=== PATIENT | female | born 2000 | race Caucasian/White ===

== ENCOUNTER 2024-06-11 15:42 | Outpatient (CLI) | payer BC, SELFPAY ==
--- NOTE | 2024-06-11 16:00 | CRLHL7_ITS ---
For Patients: As a result of the Century Cures Act, medical imaging exams and procedure reports are released immediately into your electronic medical record. You may view this report before your referring provider. If you have questions, please contact your health care provider. HISTORY: Dating and viability COMPARISON: None available of this gestation. TECHNIQUE: Transvaginal ultrasound examination of the early was performed. FINDINGS: A single intrauterine gestational sac is seen with a pole. The crown-rump length measurement of 3.2 cm gives an estimated gestational age of 10 weeks 1 day with an estimated date of delivery of 01/06/2025. This correlates well with the LMP of 04/05/2020 for which gives a clinical age of 9 weeks 4 days. Regular cardiac activity is seen at 176 BPM. There is no sign of free fluid in the pelvis. The right ovary is normal in appearance. The left ovary can not be identified. IMPRESSION: Single intrauterine gestation with estimated age of 10 weeks 1 day. Regular cardiac activity is seen. Dictated by Antonio Mckeon MD @ 06/11/2024 11:09:10 PM (Electronically Signed)
== END 2024-06-11 15:43 | disposition home or self-care (01) ==
LOC: US 15:42
PROVIDERS: Visit Provider Registered Nurse
DX: Z34.91 Encounter for supervision of normal pregnancy, unspecified, first trimester (principal); Z3A.10 10 weeks gestation of pregnancy
CPT/HCPCS: 76817; 86703; 86706; 86803; 86850; 86900; 86901; 87086; 87340; 87491; 87591

== ENCOUNTER 2024-06-11 17:10 | Outpatient (CLI) | payer BC, SELFPAY ==
[2024-06-11 19:53] LABS: Chlamydia DNA Amplified* NOT DETECTED (No Detected); GC DNA Amplified* NOT DETECTED (No Detected)
== END 2024-06-11 17:11 | disposition home or self-care (01) ==
PROVIDERS: Visit Provider Registered Nurse
DX: Z34.91 Encounter for supervision of normal pregnancy, unspecified, first trimester (principal); Z3A.09 9 weeks gestation of pregnancy
CPT/HCPCS: 86592; 86703; 86704; 86706; 86762; 86787; 86803; 86850; 86900; 86901; 87086; 87340; 87491; 87591

== ENCOUNTER 2024-08-13 08:09 | Outpatient (CLI) | payer BC, SELFPAY ==
--- NOTE | 2024-08-13 08:15 | CRLHL7_ITS ---
For Patients: As a result of the Century Cures Act, medical imaging exams and procedure reports are released immediately into your electronic medical record. You may view this report before your referring provider. If you have questions, please contact your health care provider. INDICATION: Evaluate anatomy. COMPARISON: 06/11/2024 TECHNIQUE: Real time denise scale imaging of the fetus was performed as well as color Doppler analysis of the umbilical vessels. FINDINGS: Sonographic imaging demonstrates a single living intrauterine gestation. Fetus demonstrates a regular cardiac rate of 150 beats per minute. Fetus has a breech position. The placenta lies fundal without evidence of placenta previa. Edge of the placenta located 9.7 cm from the internal cervical os. Amniotic fluid volume appears normal. Single deepest vertical pocket: 4.4 cm. The cervix is closed and measures 4.2 cm in length. The composite ultrasound gestational age is calculated at 19 weeks 2 days with an estimated sonographic due date of 01/05/2025. The estimated weight is 273 grams which lies at the 76th %. The following biometric measurements were obtained: Biparietal diameter: 4.3 cm/19 weeks 1 day 73rd% Head circumference: 16.3 cm/19 weeks 1 day 68th% Abdominal circumference: 14.3 cm/19 weeks 5 days 81st% Femur length: 2.8 cm/18 weeks 3 days 37th% The HC/AC ratio measures: 1.14 range (1.09-1.26) On anatomic survey, there is a normal appearance of the cerebral ventricles, cavum septi pellucidi, cisterna magna and cerebellum. The nose and lips appear normal. Incomplete visualization of the profile due to position. The cervical, thoracic and lumbar spine are well visualized and appear normal. Cardiac structures are difficult to evaluate due to position. The diaphragm and stomach appear normal. The kidneys and bladder also appear normal. There is a normal three-vessel cord and there is a marginal cord insertion site located 4 millimeters from the placental edge. The four extremities appear normal. IMPRESSION: Concordance of clinical and sonographic dating. Incomplete visualization of the profile, LVOT, RVOT, three-vessel view and three-vessel trachea view. Remainder of the anatomic survey normal. Short-term follow-up recommended. Marginal cord insertion located 4 millimeters from the placental edge. Dictated by Shane Naranjo MD @ 08/13/2024 1:00:00 PM (Electronically Signed)
== END 2024-08-13 08:10 | disposition home or self-care (01) ==
LOC: US 08:10
PROVIDERS: Visit Provider Midwife
DX: Z34.92 Encounter for supervision of normal pregnancy, unspecified, second trimester (principal); Z3A.19 19 weeks gestation of pregnancy
CPT/HCPCS: 76805

== ENCOUNTER 2024-08-26 10:07 | Outpatient (CLI) | payer BC, SELFPAY ==
--- NOTE | 2024-08-26 10:15 | CRLHL7_ITS ---
For Patients: As a result of the Century Cures Act, medical imaging exams and procedure reports are released immediately into your electronic medical record. You may view this report before your referring provider. If you have questions, please contact your health care provider. OBSTETRICAL ULTRASOUND FOLLOW-UP INDICATION: Follow-up anatomy. 20, para 3. LMP: 04/05/2024 VIRGILIO by LMP: 01/10/2025 Gestational age: 20 weeks 3 days Gestation: Single COMPARISON: 08/13/2024, 06/11/2024. TECHNIQUE: Realtime denise-scale imaging of the fetus was performed transabdominal. FINDINGS: Cervix: Visualized, 3.1 cm positioning: Breech Amniotic fluid: 5.5 cm SDP Placenta technique: Transabdominal Placenta position: Anterior heart rate: 142 bpm BIOMETRY: BPD: 5.1 cm, 21 weeks 4 days, 87.4% HC: 18.9 cm, 21 weeks 2 days, 77.4% AC: 16.6 cm, 21 weeks 5 days, 81.8% FL: 3.3 cm, 20 weeks 2 days, 39.0% FL/AC Ratio: 19.9% HC/AC ratio: 1.1 EFW: 399.8 grams; 0 lbs. 14 oz. age by this ultrasound: 21 weeks 2 days VIRGILIO by this US: 01/04/2025 Percentile by VIRGILIO: 81.5% IMPRESSION: Facial profile, cardiac outflow tracts, three-vessel view and three-vessel trachea view were seen and appear normal. WIL VO M.D. Body/Diagnostic Radiologist [email or web address] Transcribed: 10:[address]/Dictated by: Wil Vo MD @ 08/27/2024 8:52:00 AM (Electronically Signed)
== END 2024-08-26 10:08 | disposition home or self-care (01) ==
LOC: US 10:08
PROVIDERS: Visit Provider Midwife
DX: Z34.92 Encounter for supervision of normal pregnancy, unspecified, second trimester (principal); Z3A.20 20 weeks gestation of pregnancy
CPT/HCPCS: 76816

== ENCOUNTER 2024-10-15 10:49 | Outpatient (CLI) | payer BC, SELFPAY | END 2024-10-15 10:50 | disposition home or self-care (01) | LOC: NFLDREF 10-18 02:29 | PROVIDERS: Visit Provider Midwife | DX: Z34.92 Encounter for supervision of normal pregnancy, unspecified, second trimester (principal); Z3A.27 27 weeks gestation of pregnancy | CPT/HCPCS: 86592 ==

== ENCOUNTER 2024-10-15 10:50 | Outpatient (CLI) | payer BC, SELFPAY | END 2024-10-15 10:51 | disposition home or self-care (01) | LOC: US 10:51 | PROVIDERS: Visit Provider Midwife | DX: O43.193 Other malformation of placenta, third trimester (principal); O36.63X0 Maternal care for excessive fetal growth, third trimester, not applicable or unspecified; Z3A.29 29 weeks gestation of pregnancy | CPT/HCPCS: 76816 ==

== ENCOUNTER 2024-11-27 11:58 | Outpatient (CLI) | payer BC, SELFPAY ==
--- NOTE | 2024-11-27 12:15 | CRLHL7_ITS ---
For Patients: As a result of the Century Cures Act, medical imaging exams and procedure reports are released immediately into your electronic medical record. You may view this report before your referring provider. If you have questions, please contact your health care provider. OBSTETRICAL ULTRASOUND ??? ANATOMY SURVEY, INDICATION: Marginal cord insertion. Follow-up growth. anatomy survey. CLINICAL HISTORY: LMP: 04/05/2024 VIRGILIO by LMP: 01/10/2025 Gestational age: 18 weeks 4 days TECHNIQUE: Real-time denise-scale imaging of the fetus was performed transabdominal. PREVIOUS ULTRASOUND: 06/11/2024 FINDINGS: position: Breech/billy breech Cervix: Visualized Technique: Transabdominal Length of closed cervix: 4.2 cm Placenta position: Fundal Technique: Transabdominal Placenta tip to internal os: 9.7 cm Umbilical cord: 3-vessel cord Placental insertion: Marginal (within 2 cm of placenta edge); 0.4 cm Amniotic fluid: 4.4 cm SDP (greater than/equal to 2 to less than 8 cm) ANATOMY SURVEY: Observed Structures Cerebellum: Yes; 1.9 cm, 19 weeks 5 days Cisterna magna: Yes; 4.7 mm Nuchal fold: Yes; 4.2 mm Lateral ventricle: Yes; 6.7 mm CSP: Yes Midline falx: Yes Choroid plexus: Yes Spine: Yes Stomach: Yes Abdominal cord insert: Yes Urinary bladder: Yes Kidneys: Yes Diaphragm: Yes Nose/lips: Yes Orbital view: Yes Profile: Suboptimal view due to position Upper extremities: Yes Lower extremities: Yes Hands: Yes Feet: Yes 4-chamber heart: Yes LVOT: Missing view due to position RVOT: Missing view due to position 3VV: Missing view due to position 3VTV: Missing view due to position BIOMETRY BPD: 4.3 cm, 19 weeks 1 day, 73.3% HC: 16.3 cm, 19 weeks 1 day, 67.8% AC: 14.3 cm, 19 weeks 5 days, 81.1% FL: 2.8 cm, 18 weeks 3 days, 37.3% FL/AC: 19.18% HC/AC ratio: 1.14 heart rate: 150 bpm age by this ultrasound: 19 weeks 2 days VIRGILIO by this ultrasound: 01/05/2025 Estimated weight: 273 grams (0 pounds 10 ounces) Percentile by VIRGILIO: 76.3% IMPRESSION: 1) Sonographic gestational age is 34 weeks 1 day and sonographic due date is 01/07/2025. Good correlation with dates. Normal interval growth. 2) Estimated weight is 46th percentile. Abdominal circumference is 47th percentile. SHANE BRITTON M.D. Diagnostic Radiologist [employer] [email or web address] Transcribed: 1:[address]/Dictated by: Shane Britton MD @ 11/27/2024 1:06:[address]/Dictated by: Shane Britton MD @ 11/27/2024 1:06:00 PM (Electronically Signed)
== END 2024-11-27 11:59 | disposition home or self-care (01) ==
LOC: US 11:58
PROVIDERS: Visit Provider Midwife
DX: O43.192 Other malformation of placenta, second trimester (principal); Z3A.18 18 weeks gestation of pregnancy
CPT/HCPCS: 76816

== ENCOUNTER 2024-12-16 14:20 | Outpatient (CLI) | payer OTHER, SELFPAY ==
[2024-12-17 14:54] LABS: Strep B DNA Probe Negative (Negative)
[2024-12-17 15:25] LABS: Strep B Susceptibility Needed? No
== END 2024-12-16 14:21 | disposition home or self-care (01) ==
LOC: NFLDREF 14:20
PROVIDERS: Visit Provider Midwife
DX: Z34.93 Encounter for supervision of normal pregnancy, unspecified, third trimester (principal); Z3A.36 36 weeks gestation of pregnancy
CPT/HCPCS: 87081; 87653

== ENCOUNTER 2024-12-29 00:32 | Inpatient (IN) | payer OTHER, SELFPAY ==
[2024-12-29] VITALS (13 sets, daily range): BP systolic 109–138; BP diastolic 54–76; PULSE 67–90; RESP 14–16; TEMP 36.5–36.7; O2SAT 96–98; BMI 39.4
[2024-12-29] MEDS: OXYTOCIN 10 UNIT/ML INJ IM (00:58)
--- NOTE | 2024-12-29 01:19 | W.PM.VAGDE_ITS ---
OB Procedure Vag Delivery Mother Details Mother Details: The patient is a 24 year-old, 2, Para 1, admitted on 12/29/24 at 38 2/7 Days gestation. Admission Date: 12/29/24 Additional Details Amniotic Membrane Status: SROM Amniotic Membrane Rupture Date: 12/29/24 Amniotic Membrane Rupture Time: 00:51 Amniotic Membrane Fluid Description: Clear Analgesia/Anesthesia Type: None Waterbirth: No Pitcoin: Yes Intrapartal Events: Precipitous Labor <3 Hrs Labor Onset: 22:00 Complete: 00:47 Pushin:47 Heart: heart tones during second stage were cat 2. Normal baseline of 135, no accels, variables and early decels. Precip Delivery Details Delivery Date: 12/29/24 Delivery Time: 00:51 Route of delivery: Infant Gender: Male Infant Viability: Alive; Heart Rate Present Position at Delivery: OA Delivery Details: Per nursing: Patient was admitted for active labor and progressed precipitously. ER doc was called to floor with complaints of increasing pressure. SROM noted at 0051 with clear fluid. Patient was complete at 0047 and pushing at 0047. of a viable male at 0109 in semifowlers. Vertex delivered OA. No nuchal cord or shoulder dystocia. Body delivered easily and without incident. passed to mothers abdomen with a vigorous cry. Cord was clamped and cut at > 5 minutes. APGARS were 8 at one minute and 9 at five minutes respectively. I arrived at 0105. ER MD was at bedside. I took over care. Intact placenta with a 3 vessel cord delivered spontaneously at 0109 with maternal push ing efforts. Fundus firm. 1st degree perineal and periurethral (from clitoris to urethra) identified, hemostatic and not repaired with verbal consent of Ila. EBL 200 cc. Mother and baby stable; mother plans to breastfeed. Infant weight pending.? 1 Minute Interval Total Score: 8 5 Minute Interval Total Score: 9 Additional Details Shoulder Dystocia: No Placenta Delivery Time: 01:09 Placental Delivery Description: Spontaneous Procedure Done: Global Blood Loss: 200 Laceration: Perineal - 1st Degree (and Vulvar laceration from urethra to clitoris, hemostatic and not repaired) Episiotomy Description: None Blood Loss Measurement Type: EBL Bakri Used: No Sponge/Need Count Correct: Yes Cord Vessel Description: 3 Vessels and True Knot Event Summary Status: Mother and infant were stable after delivery. Disposition: floor
--- NOTE | 2024-12-29 01:21 | W.PM.LDBA ---
Subjective History of Present Illness Date Seen: 12/29/24 Narrative: Patient is being admitted to Labor and Delivery for active labor. She is a 24 year old at 38 2/7 weeks gestation. Her full history and physical was dictated by Edda JESSICA 12/24/24. Please see this for details. She arrived and birthed prior to my arrival. This note is being written post . RN attended of baby. Please see delivery note Specific Issues/Plans G 2 P 1001 : Miguel. It is a boy! Daughter: Stephen H&P: completed 12/24/2024 by Edda JESSICA # History of precipitous . # Varicella nonimmune. Recommended vaccination. # Hep B [id number] vaccine series. # Marginal cord insertion-Marginal cord insertion (<1 cm from placental edge) ? Growth US at 28 (completed) -95% growth found and 34 weeks: 46%ile ? Delivery recommended: Early term delivery not indicated? Imaginst trimester: 06/11/2024- Single intrauterine gestation with estimated age of 10 weeks 1 day. Regular cardiac activity is seen. Anatomy US: 08/13/2024--normal but missing views and marginal cord insertion noted, follow up in 2-3w scheduled. Other: 08/26/24-Follow up normal findings with EFW 81% 10/24/2024-EFW 95% 11/27/2024 IMPRESSION: 1)Sonographic gestational age is 34 weeks 1 day and sonographic due date is 01/07/2025. Good correlation with dates. Normal interval growth. 2)Estimated weight is 46th percentile. Abdominal circumference is 47th percentile. Hepatitis B: 08/13/24 Flu: Completed Covid: 06/11/2024 Tdap: 10/30/24 RSV: N/A 32 week mental health: [] Last pap: NIL OB - Problem Based A/P Additional Plan (1) Supervision of normal : Status: Acute (2) Pain during labor: Status: Acute Plan ASSESSMENT:?? 24 at 38w2d weeks gestation?? complicated by:??marginal cord insertion Labor type: Spontaneous, Active labor?? Category 2 FHR pattern.??? Labor complicated by: precipitous?? GBS negative? PLAN:?? 1. Routine intrapartum cares as ordered. Continue with expectant management?? 2. Monitoring per policy, intermittent?? 3. Planning unmedicated . Candidate for analgesia of choice.??? 4. Patient encouraged to reposition and ambulate to promote physiologic labor and .?? 5. Anticipate ? OB Exam Physical Exam Vital signs: Pulse BP 81 138/73 12/29/24 01:02 12/29/24 01:02 Narrative: Vitals Reviewed Constitutional:? Alert and oriented x3 HEENT:? Normocephalic, atraumatic Abdomen:? Soft, nontender, and gravid. Vertex by Arthur's, confirmed with cervical exam. Cervix: 6 cm/90%/0 station/vertex per nursing NST: 135 bpm/moderate variability/accelerations/[]decelerations/[]contractions
[2024-12-29] MEDS: IBUPROFEN 600 MG TABLET PO ×3 (01:22→20:00)
[2024-12-29] MEDS: DOCUSATE SODIUM 100 MG CAPSULE PO (09:31)
[2024-12-30 04:58] VITALS: BP 116/76; PULSE 80; RESP 16; TEMP 36.6; O2SAT 97
[2024-12-30 06:43] LABS: Hemoglobin* 13.4 gm/dL (12.0-16.0)
--- NOTE | 2024-12-30 07:36 | PM.OBPNVD1 ---
OB - PN:Subj Subjective Date Seen: 12/30/24 Narrative: Ila is a 24 y.o. who was admitted to L & D for labor.? She had an uncomplicated NVD.? ?? The patient feels well.? The pain is well controlled with current medications.? She has no new complaints.? She is breast feeding and reports things were going well, overnight her baby has had some respiratory distress and was started on IV antibiotics.?She is concerned about her baby who was just brought back to the room with her at the end of my visit. the patient has done well.? Vitals have been stable.? She has remained afebrile.? Has a good appetite, is tolerating a general diet.? She is voiding without difficulty.? She is passing gas and has not had a bowel movement.? She is ambulating and denies any dizziness.? Has Small amount of rubra lochia.? OB - PN: Obj Exam Physical Exam: Vital signs: Temp Pulse Resp BP Pulse Ox O2 Del Method 98 F 80 16 116/76 97 Room Air 12/30/24 04:58 12/30/24 04:58 12/30/24 04:58 12/30/24 04:58 12/30/24 04:58 12/30/24 04:58 Narrative: GENERAL APPEARANCE:? normal affect, alert, no distress? MOOD:? appropriate? HEENT: normocephalic, neck supple, full ROM? CHEST:? Symmetrical chest wall movement.? Normal respiratory effort.? Clear to auscultation ? HEART:? regular rate and rhythm? ABDOMEN:? soft, non-tender. Uterine fundus is firm, at Umbilicus, Midline and is appropriate for the stage of recovery.? Bowel sounds present.? PERINEUM:? mild edema of the perineum, there is a 1st degree laceration that is healing well.? EXTREMITIES:? normal and trace edema? OB - PN: Obj Data Labs Labs: Laboratory Results - last 24 hr 12/30/24 06:25 Hgb 13.4 OB - PN: A/P Delivery Assessment and Plan (1) care and examination immediately after delivery: Status: Acute (2) Lactating mother: Status: Acute Plan day: 1 Plan: routine care Comments: G 2 P 2 status post uncomplicated NVD??? 1.? Continue route PP cares? 2.? .? May see if desired? 3.? Anticipate discharge home tomorrow?
[2024-12-30] MEDS: ACETAMINOPHEN 500 MG TABLET 1000 MG PO (07:53)
[2024-12-30] MEDS: DOCUSATE SODIUM 100 MG CAPSULE PO (07:54)
[2024-12-30 07:55] VITALS: BP 106/70; PULSE 94; RESP 16; TEMP 36.4; O2SAT 98
[2024-12-30] MEDS: IBUPROFEN 600 MG TABLET PO ×2 (12:34→21:07)
[2024-12-30 17:16] VITALS: BP 119/70; PULSE 77; RESP 16; TEMP 36.7; O2SAT 99
[2024-12-30 21:02] VITALS: BP 139/82; PULSE 94; RESP 22; O2SAT 96
[2024-12-31 03:29] VITALS: BP 114/73; PULSE 84; RESP 22; O2SAT 98
--- NOTE | 2024-12-31 07:14 | P.DS_ITS ---
DS: Providers Provider Date Seen: 12/31/24 Date of admission: 12/29/24 00:32 Primary care physician: Not a Local Provider Admitting Clinician: Tonja Rollins CNM Attending Physician on discharge: Tonja Rollins CNM Date of Discharge: 12/31/24 DS: Diagnosis Discharge Diagnosis (1) care and examination immediately after delivery: Status: Acute (2) Lactating mother: Status: Acute Exam Narrative: Exam Narrative: GENERAL APPEARANCE:? normal affect, alert, no distress MOOD:? appropriate CHEST:? clear to auscultation HEART:? regular rate and rhythm ABDOMEN:? soft, non-tender the uterine fundus is 1 FB below Umbilicus, Midline and is appropriate for the stage of recovery. PERINEUM:? RN to check perineum when able due to baby needs EXTREMITIES:? normal and minimal edema Const: Vital Signs, click to edit/add: Vital Signs - 24 hr 12/30/24 07:55 12/30/24 17:16 12/30/24 21:02 Temperature 97.5 F L 98.1 F Pulse Rate [Pulse Oximeter] 94 77 94 Respiratory Rate 16 16 22 Blood Pressure [Ri ght Arm] 106/70 119/70 139/82 Pulse Oximetry 98 99 96 Oxygen Delivery Me thod Room Air Room Air Room Air 12/31/24 03:29 Temperature Pulse Rate [Pulse Oximeter] 84 Respiratory Rate 22 Blood Pressure [Ri ght Arm] 114/73 Pulse Oximetry 98 Oxygen Delivery Me thod Room Air OB - DS: Summary Hospital Course Hospital Course: Ila is a 24 y.o. G 2 P 2001 who was admitted to L & D for active labor..? She had a NVD that was uncomplicated by precipitous . The patient feels well.? The pain is well controlled with current medications.? She has no new complaints.? She is breast pumping and feeding and reports things are going well with that routine. the patient has done well.? Vitals have been stable.? She has remained afebrile.? Has a good appetite, is tolerating a general diet.? She is voiding without difficulty.? She is passing gas and has not had a bowel movement.? She is ambulating and denies any dizziness.? Has small amount of rubra lochia. She is planning POP for preve ntion.? ?? Problems: ? with some low sugars and oxygen issues ?? plan:? Discharge but to stay in house with baby.? Follow up in 2 weeks and 6 weeks.? , may see if needed? Hgb 13.4. ? Peripartum Data delivery method: Vaginal Laceration description: Perineal - 1st Degree (hemostatic, not repaired. And a laceration from urethra to clitoris that was hemostatic and not repaired.) Episiotomy description: None complications: none [place] Gender: Male Infant Discharge Plan: Staying for observation additional night Status at Discharge Overall status at discharge: patient is progressing back to baseline Time Spent with Patient Time attestation: Total time spent providing and/or coordinating discharge services: Time spent: Less than 30 minutes Discharge Plan Discharge Disposition: Home, Self-Care Date of Admission: 12/29/24 00:32 Attending Provider on Discharge: Tonja Rollins Primary Care Provider: Provider,Not a Local Condition: Stable Anticipated Discharge Date/Time: 12/31/24 12:00 Discharge Medications: Continued DHA 200 mg capsule 200 mg PO DAILY Discharge Orders: Discharge Order (Routine); Ordered 12/31/24 Ordered By: Tonja Rollins Patient Education: OB Over the Counter Medication Information, OB Vaginal/Bottle Feeding, OB Vaginal/Breast Feeding Additional Instructions: Discharge instructions were reviewed with the patient including signs and symptoms of infection and home going medications Nothing vaginally for 6 weeks: no tampons or intercourse Do not drive while taking narcotic pain medication(s) Off Work or School for 6 weeks Symptoms to report to doctor: * Bleeding that saturates more than one pad per hour * Passing clots larger than the size of a golf ball * Pain not relieved by prescribed medication * Fever above 100.4 degrees Fahrenheit * A foul vaginal odor * Difficulty in emotions, mood, and functions * Thoughts of hurting yourself and/or * Painful, reddened area in your breast * Any drainage, redness, or tenderness in your IV/epidural site * Severe headache that doesn't improve after taking medications * Changes in vision, including temporary loss of vision, blurred vision, and/or light sensitivity * Upper abdominal pain (usually under ribs on the right side) * Decrease in urination or painful, frequent urinating * Chest pain * Shortness of breath * Tenderness or pain with redness and/swelling in the calf(s) of your leg 2-week visit: discuss infant feeding concerns, review control options and screen for anxiety/depression. 6-week visit for an annual exam. consultation services are available to all mothers and babies for the first year after delivery.? To make an appointment, please call [phone]. Activity Level: Activity as Tolerated and No strenuous activity Discharge Diet: Regular Follow Up Appointments: [facility] [Provider Group] Forms: Coubth Info Instructions
[2024-12-31] MEDS: DOCUSATE SODIUM 100 MG CAPSULE PO (08:26)
[2024-12-31] MEDS: IBUPROFEN 600 MG TABLET PO ×2 (08:26→19:47)
[2024-12-31 12:51] VITALS: BP 121/72; PULSE 89; RESP 16; O2SAT 98
== END 2024-12-31 20:21 | disposition home or self-care (01) | DRG 807 ==
LOC: OB OUT 00:35 → OB 00:40
PROVIDERS: Admitting Provider Midwife; Visit Provider Midwife
DX: O43.193 Other malformation of placenta, third trimester (principal); Z37.0 Single live birth; O62.3 Precipitate labor; O70.0 First degree perineal laceration during delivery; Z28.39 Other underimmunization status; Z3A.38 38 weeks gestation of pregnancy
CPT/HCPCS: 36415; 85018; 86592; A9270; J2590

== ENCOUNTER 2025-01-20 12:42 | Outpatient (CLI) | payer OTHER, SELFPAY | END 2025-01-20 12:43 | disposition home or self-care (01) | LOC: AMB 01-22 08:58 | PROVIDERS: Visit Provider Emergency Medicine | DX: R07.89 Other chest pain (principal) | CPT/HCPCS: A0998 ==

== ENCOUNTER 2025-01-20 14:26 | Emergency (ER) | payer OTHER, SELFPAY ==
[2025-01-20 14:34] VITALS: BP 109/73; PULSE 73; RESP 16; TEMP 36.4; O2SAT 97; BMI 32.4
--- NOTE | 2025-01-20 14:57 | ED.CHESTPAIN ---
HPI - Chest Pain General Time Seen by Provider: 14:57 Date Seen: 01/20/25 Chief Complaint: Chest Pain Stated Complaint: low blood pressure/ chest pian Time Seen by Provider: 01/20/25 14:57 Source: patient and RN notes reviewed Mode of arrival: ambulatory Limitations: no limitations History of Present Illness HPI narrative: Fior is a very pleasant 24-year-old 3 weeks status post normal vaginal delivery currently without complications who comes to the emergency room for evaluation regarding epigastric pain. Fior states that she was at home and around noon or shortly there after she it began experiencing tightness in the lower chest and upper abdomen. Initially she thought this was her sports bra that may have been too tight but it kept getting worse even after she removed her bra. She states that she was sweating and she could not take a deep breath. She notes that she did take some Tylenol at home and upon EMS arrival she was feeling better. She states at that time she was told that her blood pressure was a little low at 104 systolic. Here in the emergency room she has had complete resolution of symptoms although she states she has a little bit sore in the upper abdomen. She denies problems with indigestion or her gallbladder during . She does note that she had lower extremity edema during her but that has since resolved. She has no calf tenderness today or history of DVT. She denies shortness of breath recent cough cold congestion fever chills painful urination or any other abnormalities at this very time. Related Data Previous Rx's ?Medication ?Instructions ?Recorded hydrocodone 5 mg-acetaminophen 325 1 tab PO Q6H PRN pain #10 tabs 01/20/25 mg tablet Allergies Allergy/AdvReac Type Severity Reaction Status Date / Time No Known Drug Allergies Allergy Verified 01/13/25 14:24 Review of Systems Status of ROS Reports: 10 or more systems reviewed and unremarkable except as noted in History and below Narrative States her mother had gallbladder out. Const Denies: fever, chills or fatigue Eyes Denies: blurry vision ENMT Denies: throat pain or nasal congestion Cardio Reports: shortness of breath with exertion; Denies: chest pain, palpitations, swelling of feet/ankles or lightheadedness Resp Reports: shortness of breath and pain on inspiration; Denies: cough or wheezing GI Reports: abdominal pain; Denies: nausea, vomiting, diarrhea or constipation Denies: painful urination or urinary frequency Musculo Denies: back pain Neuro Denies: headache Endo Denies: fatigue Allergy/Immuno Denies: wheezing PFSH PFSH Medical History Labor, precipitous ?O62.3 - Precipitate labor (ICD-10) Asthma ?J45.909 - Unspecified asthma, uncomplicated (ICD-10) Family History Brother Diabetes Maternal Grandfather Myocardial infarction High cholesterol Maternal Grandmother Heart disease Paternal Grandmother High cholesterol 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 What is your current living situation?: I presently have a place to live Problems where you live: no known problems In the past 12 months, utilities in danger of being shut off: no In past 12 months, lack of transportation kept you from medical appts, meetings, work, or getting things needed for daily living: no In the past 12 mos, have been you worried that your food would run out before you had money to buy more?: never true In the past 12 mos, the food you bought just didn't last and you didn't have money to buy more?: never true Smoking Status: Never smoker Non-prescribed substance use: denies use How often does anyone, including family, friends and others, physically hurt you: never How often does anyone, including family, friends and others, insult or talk down to you: never How often does anyone, including family, friends and others, threaten you with harm: never How often does anyone, including family, friends and others, scream or curse at you: never Exam Narrative Exam Narrative: Alert and oriented. No acute distress. Mentation and speech is normal. Face symmetrical. Oral cavity with moist mucous membranes. Neck is supple. Heart with regular rate and rhythm with no additional heart sounds or murmurs noted. Lungs are clear bilaterally. Abdomen is soft nontender. Negative Mitchell sign. Lower extremities without edema. Negative Homans sign. No erythema. Const Vital Signs, click to edit/add: Vital Signs - 24 hr 01/20/25 14:34 01/20/25 17:16 Temperature 97.6 F Pulse Rate 68 Pulse Rate [Pulse Oximeter] 73 Respiratory Rate 16 12 Blood Pressure 124/69 Blood Pressure [Right Upper Arm] 109/73 Pulse Oximetry 97 98 Oxygen Delivery Method Room Air Room Air Documenting provider has reviewed patient's vital signs: yes Course Course ED Course: Differential diagnosis includes but is not limited to angina, biliary colic, intestinal colic, UTI, PE. At this time vital signs are normal with good oxygen levels and her pulses normal. While and previous leg swelling certainly would increase risk of DVT, I do not think we are dealing with PE especially since her legs are without any swelling and without any tenderness. Patient has complete resolution of symptoms at this time. I am more likely inclined to think this was biliary colic. Will obtain CBC, comprehensive, troponin, EKG, chest x-ray, CRP and urinalysis. Reevaluation(s) Reevaluation #1: Patient continues to do well after returning from ultrasound. At this time given evidence of cholelithiasis, pain that has not come back, I am cancelling the 2nd troponin as I do not think this is very low yield given the reassuring EKG and known gallbladder stones. Vital Signs Vital signs: Initial Vital Signs Temperature 97.6 F 01/20/25 14:34 Temperature Source Temporal Artery Scan 01/20/25 14:34 Pulse Rate 73 01/20/25 14:34 Respiratory Rate 16 01/20/25 14:34 Blood Pressure 109/73 01/20/25 14:34 Blood Pressure Mean 85 01/20/25 14:34 Blood Pressure Position Sitting 01/20/25 14:34 Pulse Oximetry 97 01/20/25 14:34 Oxygen Delivery Method Room Air 01/20/25 14:34 Vital Signs Temperature 97.6 F 01/20/25 14:34 Pulse Rate 73 01/20/25 14:34 Respiratory Rate 16 01/20/25 14:34 Blood Pressure 109/73 01/20/25 14:34 Pulse Oximetry 97 01/20/25 14:34 Oxygen Delivery Method Room Air 01/20/25 14:34 Temperature 97.6 F 01/20/25 14:34 Pulse Rate 68 01/20/25 17:16 Respiratory Rate 12 01/20/25 17:16 Blood Pressure 124/69 01/20/25 17:16 Pulse Oximetry 98 01/20/25 17:16 Oxygen Delivery Method Room Air 01/20/25 17:16 MDM - Chest Pain MDM Narrative Medical decision making narrative: 1. Atypical chest pain-pain seemed to be centered mostly in the epigastrium. Patient has been pain-free since she has been here. Radiology has not yet read her report but I do note that there are multiple stones within normal gallbladder wall. Patient is anxious to go home as she is . Will allow her to depart and will call her if the radiological report changes her treatment. I would like her to follow-up with our surgical team in the next week. The phone number for the clinic is provided. She will most likely need to have this gallbladder removed but it certainly is not emergent today with no evidence of leukocytosis elevated LFTs and CRP is normal. I have given her a small amount of [place] 5/325 to be use 1 tab q.6 hours p.r.n. if she is having the pain. If the pain lasts longer than an hour or 2, she started experiencing vomiting or has a high fever she will need to return to the emergency room for evaluation. We did talk about risks of septic gallbladder. 2. Disposition-home at this time. Will call Fior if the radiological report is abnormal beyond the cholelithiasis noted today. She is in agreement with this plan. Medical Records Data Attestation: I reviewed the patient's medical records. Lab Data Attestation: I reviewed the patient's lab results. Labs: Lab Results 01/20/25 Range/Units 15:35 WBC 10.27 (4.50-11.00) K/uL RBC 4.94 (4.00-5.20) m/uL Hgb 14.7 (12.0-16.0) gm/dL Hct 43.5 (33.0-51.0) % MCV 88 (80-100) fL MCH 30 (26-34) pg MCHC 34 (32-36) gm/dL RDW Coeff of Ovi 12.2 (11.5-15.5) % Plt Count 290 (140-440) K/uL Neut % (Auto) 78.9 H (42.0-72.0) % Lymph % (Auto) 13.9 L (20-44) % Brule % (Auto) 6.3 (0.0-11.0) % Eos % (Auto) 0.5 (0.0-7.0) % Baso % (Auto) 0.2 (0.0-3.0) % Neut # (Auto) 8.10 H (1.7-7.0) K/uL Lymph # (Auto) 1.40 (0.90-2.90) K/uL Brule # (Auto) 0.60 (0.00-0.90) K/UL Eos # (Auto) 0.05 (0.00-0.50) K/uL Baso # (Auto) 0.02 (0.00-0.30) K/uL Abs Immat Gran (auto) 0.02 (0.00-0.30) K/uL Imm/Tot Granulo (auto) 0.2 % Sodium 138 (135-149) mmol/L Potassium 3.8 (3.6-5.1) mmol/L Chloride 106 (96-114) mmol/L Carbon Dioxide 25 (20-32) mmol/L Anion Gap 7 (7-15) mEq/L BUN 11 (5-24) mg/dL Creatinine 0.8 (0.5-1.5) mg/dL Estimated Creat Clear 99.76 Estimated GFR 104 ml/min Glucose 100 (60-115) mg/dL Calcium 9.9 (8.4-10.6) mg/dL Total Bilirubin 0.5 (0.1-1.5) mg/dL AST 32 (12-35) U/L ALT 25 (4-35) U/L Alkaline Phosphatase 129 (40-150) U/L Troponin I < 0.01 (0.01-0.04) ng/mL C-Reactive Protein < 0.5 L (0.5-1.0) mg/dL Total Protein 7.1 (6.0-8.3) g/dL Albumin 4.2 (3.3-5.0) g/dL Lipase 151 (23-300) U/L Urine Color Yellow (Yellow) Urine Appearance Clear (Clear) Urine pH 6.0 (5.0-8.5) Ur Specific [place] 1.015 (1.000-1.030) Urine Protein Negative (Negative) Urine Glucose (UA) Negative (Negative) Urine Ketones Negative (Negative) Urine Blood Negative (Negative) Urine Nitrite Negative (Negative) Urine Bilirubin Negative (Negative) Urine Urobilinogen 0.2 (0.2-1.0) Ur Leukocyte Esterase Negative (Negative) Urine RBC 0-2 (0-2) Urine WBC 0-2 (0-5) Ur Squamous Epith Cells None (None-Few) Urine Bacteria None (None) POC Troponin I Cancelled Imaging Data Chest x-ray: Attestation: I have reviewed the pertinent imaging results. My impression: No obvious infiltrate Radiologist's impression: The cardiomediastinal silhouette and pulmonary vasculature are unremarkable. There is no focal airspace consolidation, pleural effusion, or pneumothorax. The imaged upper abdomen is unremarkable. No displaced fractures. IMPRESSION: No acute cardiopulmonary process. US - abdomen: Attestation: I have reviewed the pertinent imaging results. ECG Data Attestation: I personally reviewed and interpreted this ECG as follows: ECG interpretation date: 01/20/25 Interpretation: EKG shows sinus rhythm at a rate of 66. I do not note any acute ST or T-wave changes. Normal QT and IA intervals. Discharge Plan Discharge Clinical Impression: Biliary colic, Cholelithiasis Patient Disposition: Home, Self-Care Condition: Improved Additional Instructions: Recommend follow-up with surgery for next step in terms of the stones in your gallbladder. The phone number is [phone] for the clinic and the clinic is attached to our hospital. Meantime try to avoid significantly fatty foods which cause the gallbladder 2 contract. You may use [place] also known as hydrocodone and Tylenol if needed for ongoing pain. It does a contain and narcotic and so you would not want to use alcohol or drive with this medication. It may also cause constipation. You may use a stool softener if needed. If your pain does not go away within an hour or 2, you are experiencing vomiting or start having a high fever I wanted to return to the emergency room. Prescriptions: New hydrocodone-acetaminophen 5-325 mg tablet 1 tab PO Q6H PRN (Reason: pain) Qty: 10 0RF Follow Up/Referrals: Provider,Not a Local [Primary Care Provider, Family Practice] Stand Alone Forms: [facility] Info Instructions
--- NOTE | 2025-01-20 15:15 | CRLHL7_ITS ---
For Patients: As a result of the Cures Act, medical imaging exams and procedure reports are released immediately into your electronic medical record. You may view this report before your referring provider. If you have questions, please contact your health care provider. INDICATION: : Epigastric pain COMPARISON: None TECHNIQUE: One view(s) of the chest FINDINGS: The cardiomediastinal silhouette and pulmonary vasculature are unremarkable. There is no focal airspace consolidation, pleural effusion, or pneumothorax. The imaged upper abdomen is unremarkable. No displaced fractures. IMPRESSION: No acute cardiopulmonary process. Dictated by Sung Reinoso MD @ 01/20/2025 3:40:22 PM (Electronically Signed)
[2025-01-20 15:48] LABS: Basophils Absolute Auto 0.02 K/uL (0.00-0.30); Basophils Percent Auto 0.2 % (0.0-3.0); Eosinophils Absolute Auto 0.05 K/uL (0.00-0.50); Eosinophils Percent Auto 0.5 % (0.0-7.0); Hematocrit 43.5 % (33.0-51.0); Hemoglobin* 14.7 gm/dL (12.0-16.0); Immature Granulocytes Abs Auto 0.02 K/uL (0.00-0.30); Immature Granulocytes Pct Auto 0.2 %; Lymphocytes Percent Auto 13.9 % (20-44); Mean Corpuscular HGB Conc 34 gm/dL (32-36); Mean Corpuscular Hemoglobin 30 pg (26-34); Mean Corpuscular Volume 88 fL (80-100); Monocytes Percent Auto 6.3 % (0.0-11.0); Neutrophils Percent Auto 78.9 % (42.0-72.0); Platelet Count* 290 K/uL (140-440); RDW Coefficient of Variation % 12.2 % (11.5-15.5); Red Blood Count 4.94 m/uL (4.00-5.20); White Blood Count* 10.27 K/uL (4.50-11.00)
[2025-01-20 15:53] LABS: Appearance Urine Clear (Clear); Bilirubin Urine Negative (Negative); Blood Urine Negative (Negative); Color Urine Yellow (Yellow); Glucose Urine Negative (Negative); Ketones Urine Negative (Negative); Leukocyte Esterase Urine Negative (Negative); Nitrite Urine Negative (Negative); Protein Urine Negative (Negative); Slide Review Reflex No; Specific Gravity Urine 1.015 (1.000-1.030); Urobilinogen Urine 0.2 (0.2-1.0)
--- NOTE | 2025-01-20 16:22 | CRLHL7_ITS ---
For Patients: As a result of the Century Cures Act, medical imaging exams and procedure reports are released immediately into your electronic medical record. You may view this report before your referring provider. If you have questions, please contact your health care provider. INDICATION: Epigastric pain. TECHNIQUE: Ultrasound abdomen limited. Sonographic images of the right upper quadrant were obtained using denise-scale and color Doppler images. COMPARISON: None. FINDINGS: Liver: Normal in size and echotexture. No suspicious masses. No intrahepatic biliary dilatation. Gallbladder: Contains calcified stones. Normal wall thickness. No pericholecystic fluid. Negative sonographic Mitchell`s sign. Common bile duct: Non-dilated, measuring 3 mm. Pancreas: Unremarkable. Right kidney: Normal in size. Normal echotexture and cortex. No suspicious masses, stones, or hydronephrosis. Vasculature: Proximal abdominal aorta and IVC are unremarkable. IMPRESSION: Cholelithiasis without evidence for cholecystitis. Otherwise, unremarkable right upper quadrant ultrasound. Dictated by Fernando Chacko MD @ 01/20/2025 6:59:27 PM (Electronically Signed)
[2025-01-20 16:24] LABS: RBC Urine 0-2 (0-2); WBC Urine 0-2 (0-5)
[2025-01-20 16:36] LABS: Albumin* 4.2 g/dL (3.3-5.0); Chloride* 106 mmol/L (96-114); Sodium* 138 mmol/L (135-149)
[2025-01-20 16:37] LABS: Potassium* 3.8 mmol/L (3.6-5.1)
[2025-01-20 16:39] LABS: Anion Gap 7 mEq/L (7-15); Blood Urea Nitrogen* 11 mg/dL (5-24); Carbon Dioxide* 25 mmol/L (20-32); Creatinine* 0.8 mg/dL (0.5-1.5); Est. Creatinine Clearance* 99.76; Estimated Glomerular Filt Rate 104 ml/min
[2025-01-20 16:40] LABS: Alanine Aminotransferase* 25 U/L (4-35); Alkaline Phosphatase* 129 U/L (40-150); Aspartate Amino Transferase* 32 U/L (12-35); Bilirubin Total* 0.5 mg/dL (0.1-1.5); Calcium* 9.9 mg/dL (8.4-10.6); Glucose* 100 mg/dL (60-115); Lipase* 151 U/L (23-300); Total Protein* 7.1 g/dL (6.0-8.3)
[2025-01-20 16:49] LABS: C Reactive Protein* < 0.5 mg/dL (0.5-1.0)
[2025-01-20 16:59] LABS: Troponin I* < 0.01 ng/mL (0.01-0.04)
[2025-01-20 17:16] VITALS: BP 124/69; PULSE 68; RESP 12; O2SAT 98
== END 2025-01-20 18:10 | disposition home or self-care (01) ==
PROVIDERS: Emergency Provider Family Medicine
DX: K80.51 Calculus of bile duct without cholangitis or cholecystitis with obstruction (principal); K80.20 Calculus of gallbladder without cholecystitis without obstruction
CPT/HCPCS: 36415; 71045; 76705; 80053; 81001; 83690; 84484; 85025; 86140; 99284

== ENCOUNTER 2025-02-17 07:36 | Day surgery (SDC) | payer OTHER, SELFPAY ==
[2025-02-17] VITALS (14 sets, daily range): BP systolic 109–131; BP diastolic 60–96; PULSE 51–92; RESP 12–18; TEMP 36.5–36.6; O2SAT 95–99; BMI 31.8
[2025-02-17] MEDS: LACTATED RINGERS 1000 ML 1,000 ML 100 ML IV (07:40)
[2025-02-17] MEDS: SODIUM CHLORIDE 0.9 % (FLUSH) 10 ML SYRINGE IVF (07:59)
[2025-02-17 08:06] LABS: Ur HCG Qualitative* Negative (Negative)
--- NOTE | 2025-02-17 08:10 | SUR.OPER ---
PATIENT QUESTIONS ANSWERED SATISFACTORILY PREOPERATIVELY. PATIENT BROUGHT TO OR #4 PER CART. Patient positioned supine on OR #4 bed. The perioperative team supported arms bilaterally on arm boards. Final approval of positioning by surgeon.
[2025-02-17] MEDS: ACETAMINOPHEN 500 MG TABLET 1000 MG PO (08:28)
[2025-02-17] MEDS: GABAPENTIN 600 MG TABLET PO (08:28)
[2025-02-17] MEDS: SCOPOLAMINE 1 MG/3 DAY PATCH 1 PATCH TRANSDERMA (08:28)
--- NOTE | 2025-02-17 08:43 | W.PM.H&PU ---
History & Physical Update History & Physical Update H&P Reviewed and patient assessed: No changes noted
--- NOTE | 2025-02-17 08:45 | P.GSOP_ITS ---
Operative Note Date of procedure: 02/17/25 Pre-op diagnosis: 1. 7 weeks . 2. Biliary colic. Post-op diagnosis: Same Type of Procedure: 1. Laparoscopic cholecystectomy. Indications: 24-year-old female 7 weeks was seen in clinic for evaluation of severe epigastric pain. The pain was so severe that she was having trouble breathing. She took Tylenol and called the ambulance. The ambulance checked her out and they were concerned for gallbladder attack. Her pain lasted for 30- 45 minutes and then spontaneously resolved. Patient was still evaluated in the emergency room. She denied similar previous episodes but occasionally had right upper quadrant discomfort during . Upon her workup she was found to have normal WBC, liver function tests, and lipase. A gallbladder ultrasound was obtained that showed cholelithiasis. The gallbladder wall was at the upper limits of normal and there was no evidence of pericholecystic fluid. On clinical exam she had no tenderness to palpation in right upper quadrant or epigastrium and had negative Mitchell sign. Given patient's clinical history, laparoscopic cholecystectomy was discussed but patient elected to wait and see if she develops any further episodes. Patient then developed 2 other similar episodes of ?passing a stone?. She called our clinic and decided to proceed with laparoscopic cholecystectomy. The procedure was discussed in detail. The risks associated procedure including infection, bleeding, injury to intra- abdominal organs, and injury to the common bile duct were all discussed with the patient, and she agreed to proceed. Procedure Description: After discussing the risks and benefits of the procedure, the patient signed informed consent.? The operative site was marked and the patient was brought to the operating room and placed on the operating table in supine position.? Care was taken to pad the patient's pressure points.?? The patient was then intubated by anesthesia.?? The operative site was then prepped and draped in the usual sterile fashion.? A time-out was then performed. A 5-mm laparoscopy port was placed in the left upper quadrant guided by a 5-mm laparoscope placed into a translucent trochar.~ Passage through the layers of the abdominal wall was visualized with the laparoscope.~ A pneumoperitoneum was established. A 0-degree 5-mm laparoscope was advanced into the abdomen. The abdomen was briefly surveyed, and no adhesions were noted. A 10-mm port were placed infraumbilically and two more 5 mm ports were placed on the right under direct visualization by laparoscope. The camera was then changed to 10 mm 30- degree scope and placed into the abdomen through the 10 mm port. The left upper quadrant port entrance was examined and no injury to intra-abdominal organs was identified. The gallbladder was identified, the fundus grasped and retracted cephalad. The infundibulum was grasped and retracted laterally, exposing the peritoneum overlying the triangle of [place]ot. There was no evidence of acute cholecystitis. The triangle of Calot was then divided and exposed in blunt fashion and with hook cautery. Common bile duct was not identified but care was taken not to injure it. The cystic duct was clearly identified and bluntly dissected circumferentially. Cystic artery was identified and tissues around it were dissected off. The cystic artery and the cystic duct were clearly going into the gallbladder. The cystic duct was then doubly ligated with surgical clips on the patient's side and singly clipped on the gallbladder side and divided. The cystic artery was then similarly ligated with clips and divided as well. The gallbladder was dissected from the liver bed in retrograde fashion using hookcautery. The gallbladder was placed into an Endo-Catch bag and removed through the infraumbilical incision. Surgical site was examined for bleeding. No bleeding was seen in the surgical field. The fascia of the infraumbilical incision was then closed with interrupted 0-0 vicryl sutures using [place] needle under direct visualization. Pneumoperitoneum was completely reduced after viewing removal of the trocars under direct vision. The skin was then closed with 4-0 monocryl and steristrips were applied. Instrument, sponge, and needle counts were correct at closure and at the conclusion of the case. The patient was transferred to PACU in stable condition. Findings: No evidence of acute cholecystitis. Cholelithiasis. Anesthesia: GETA Surgeon: Ventura Tripp MD Estimated blood loss (mL): 5 Specimen: Gallbladder Condition: stable Disposition: PACU
[2025-02-17] MEDS: BUPIVACAINE 0.25% 30 ML INJECTION (09:11)
[2025-02-17] MEDS: LIDOCAINE 1%-EPI 1:100,000 20 ML INFILTRATI (09:11)
--- NOTE | 2025-02-17 10:06 | P.ANES_ITS ---
Anesthesia Charges Start Date/Time Anesthesia Start Date: 02/17/25 Anesthesia Start Time: 08:54 Stop Date/Time Anesthesia Stop Date: 02/17/25 Anesthesia Stop Time: 10:00 Coding CPT Codes CPT Codes: ANESTH SURG UPPER ABDOMEN - 31990 ([id number]) P2 - PATIENT W/MILD SYST DISEASE, QK - LIFT TRUCK OPERATOR 2-4 CNCRNT ANES PROC, QX - ELECTRICAL ENGINEERING DRAFTSPERSON SVC W/ MD MED DIRECTION
--- NOTE | 2025-02-17 10:06 | W.ANESCHARGE ---
Anesthesia Charges Start Date/Time Anesthesia Start Date: 02/17/25 Anesthesia Start Time: 08:54 Stop Date/Time Anesthesia Stop Date: 02/17/25 Anesthesia Stop Time: 10:00 Coding CPT Codes CPT Codes: ANESTH SURG UPPER ABDOMEN - 85017 ([id number]) P2 - PATIENT W/MILD SYST DISEASE, QK - MEDICAL ANTHROPOLOGY DIRECTOR 2-4 CNCRNT ANES PROC, QX - SIDE PIECE COVERER SVC W/ MD MED DIRECTION
--- NOTE | 2025-02-17 10:26 | P.ANES_ITS ---
Anesthesia Charges Start Date/Time Anesthesia Start Date: 02/17/25 Anesthesia Start Time: 08:54 Stop Date/Time Anesthesia Stop Date: 02/17/25 Anesthesia Stop Time: 10:00 Coding CPT Codes CPT Codes: ANESTH SURG UPPER ABDOMEN - 47267 ([id number]) QK - FOUNDRY PROCESS ENGINEER 2-4 CNCRNT ANES PROC, QX - PROTECTION ENGINEER SVC W/ MD MED DIRECTION, P2 - PATIENT W/MILD SYST DISEASE
--- NOTE | 2025-02-17 10:26 | W.ANESCHARGE ---
Anesthesia Charges Start Date/Time Anesthesia Start Date: 02/17/25 Anesthesia Start Time: 08:54 Stop Date/Time Anesthesia Stop Date: 02/17/25 Anesthesia Stop Time: 10:00 Coding CPT Codes CPT Codes: ANESTH SURG UPPER ABDOMEN - 07259 ([id number]) QK - MEDICAL PHOTOGRAPHER 2-4 CNCRNT ANES PROC, QX - PROGRAM AIDE SVC W/ MD MED DIRECTION, P2 - PATIENT W/MILD SYST DISEASE
== END 2025-02-17 12:15 | disposition home or self-care (01) ==
PROVIDERS: Anesthesiology; Visit Provider Surgery
PROC: 0FT44ZZ Resection of Gallbladder, Percutaneous Endoscopic Approach (ICD-10-PCS; CPT 47562; principal; 2025-02-17 08:45)
DX: K80.20 Calculus of gallbladder without cholecystitis without obstruction (principal)
CPT/HCPCS: 47562; 00790; 81025; A9270; J0330; J0665; J0690; J1171; J1885; J2250; J2405; J2704; J2710; J3010; J7120